=== PATIENT | male | born 1970 | race Caucasian/White ===

== ENCOUNTER 2017-12-26 10:02 | Emergency (ER) | payer MEDICAID, SELFPAY ==
[2017-12-26 10:05] VITALS: BP 146/101; PULSE 74; RESP 20; TEMP 37.1; O2SAT 95
--- NOTE | 2017-12-26 10:31 | DI.RAD_ITS ---
SYMPTOMS/DIAGNOSIS: LEFT-SIDED PLEURITIC CHEST PAIN CHEST X-RAY, PA AND LATERAL: No priors. The heart is normal in size. The lungs are clear. The mediastinal structures and pleura appear intact. IMPRESSION: Normal chest.
--- NOTE | 2017-12-26 10:33 | W.ED.GENAD ---
Discharge Plan Disposition Patient Disposition: HOME Condition: Fair Discharge Details Chief Complaint: Chest/Rib Clinical Impression: Musculoskeletal pain Primary Care Provider: Ga Shields ED Provider: Laine Maehr Home Meds and New Rx's Prescriptions: New diclofenac sodium 75 mg tablet,delayed release (DR/EC) 75 mg PO BID PRN (Reason: pain) Qty: 14 RF: 0 Continue buprenorphine-naloxone [Suboxone] 8-2 mg Film 1 film Sublingual DAILY RF: 0 Discharge Instructions Instructions: Musculoskeletal Pain (ED) Additional Instructions: Encourage hydration. May use Tylenol 1000 mg every 4 times daily as needed. Please take diclofenac as prescribed. You may take your next dosing this evening prior to going to bed. You may continue with topical options such as salonpas or Lidoderm patches to help with discomfort. Ice or heat to affected area. Please follow-up with primary care in the next week, have asked her rn primary care help facilitate follow-up. If you develop shortness of breath, difficulty breathing, fever/chills or other new/worsening symptoms please seek care urgently once again. Try to avoid activities that cause increased pain such as heavy lifting Referrals: Ga Shields MD [Primary Care Provider] - Discharge Data Discharge Date/Time-TO BE ENTERED AT DEPARTURE: 12/26/17 13:00 Medical Decision Making Patient is a 47-year-old male presenting today with chief complaint of left-sided pleuritic chest pain. Reports that symptoms began 1 week ago. Patient denies any cardiac or respiratory chronic conditions. Denies any cough, shortness of breath. Reports that pain primarily only with movement or with deep inspiration. He reports that when sitting still the pain completely subsides. Denies any fevers or chills. States that the discomfort began insidiously 1 week ago. Denies any trauma or known injury leading to initial discomfort. No recent travel. Patient is an active smoker, smokes roughly half pack daily. Denies any central chest discomfort. States that the pain can radiate anteriorly slightly. Denies any hematuria or change in urination. Denies any change in bowel habits. Lungs are clear on exam. Patient does have discomfort elicited with gentle palpation of the left side of the back. Fairly large area of discomfort. As the pain can radiate anteriorly, I did question shingles but the pain is only with movement and no rashes visualized. Pain also does not follow complete dermatome pattern. Considered both pulmonary, cardiac and abdominal sources of his discomfort. This is pleuritic is likely pulmonary source. Will obtain laboratory evaluation as well as chest x-ray Laboratory evaluation without significant of normality. No leukocytosis. D-dimer is within normal limits. Troponin is less than 0.02. Lipase within normal limits. No blood noted on urinalysis. Discussed these findings with the patient. I did review the x-ray myself do not appreciate any acute abnormality. However, I am still waiting radiologist report. With these findings, I discussed this likely muscular skeletal versus pleuritis. I encouraged hydration. Encouraged use of an anti-inflammatory. Will prescribe the patient ibuprofen. Patient reports the Toradol was unsuccessful in alleviating his discomfort. We will augment this with Lidoderm patch X-ray reviewed by radiologist. Advised that there is no acute findings. Discussed findings with the patient. Given his diffuse discomfort on the left side of his back, I did have multiple possible diagnoses. However, patient does not have a rash, d-dimer is within normal limits, troponin is less than 0.02, patient does not exhibit any signs of infection, no hematuria. His symptoms are more consistent with a pleuritic or musculoskeletal source of discomfort as it is worse with inspiration. Does not sound consistent with a kidney stone. Does not sound consistent with cardiac etiology. Given the length of his discomfort, I do not feel that repeat troponin is warranted at this time particularly as I have low suspicion for cardiac etiology at this time. I advised the patient begin an anti-inflammatory regularly as this will likely help with the source of his discomfort. I encouraged gentle stretching and ambulation. We discussed activities that he should avoid that may increase his discomfort. He was given strict return precautions. All of his questions and concerns were addressed and he is in agreement this plan. Patient does not have a primary care physician, I have asked her rn primary care help facilitate follow-up for him for reevaluation HPI General Mode of arrival: ambulatory. Date/Time Provider Initiated Documentation: 12/26/17 10:17. Limitations to Documentation: no limitations. Information obtained by: patient. History of Present Illness 47 year old M presents to the emergency department with the chief complaint of left sided rib pain, described as severe, with intensity rated at 10. Quality is described as stabbing, and is localized to the chest and back. Patient abdomen. Patient started experiencing this week(s) (1) and it has been constant. Immobilization improves symptom(s), Movement worsens symptoms . Patient notes no other symptoms.; denies cough, fever/chills, headaches, loss of appetite, nausea/vomiting, rash and shortness of breath. Patient did receive the following treatments prior to arrival, none Related Data Home Medications Medication Instructions Recorded Confirmed buprenorphine-naloxone [Suboxone] 1 film SUBLINGUAL DAILY 12/26/17 12/26/17 diclofenac sodium 75 mg PO BID PRN #14 tab 12/26/17 Previous Rx's Medication Instructions Recorded diclofenac sodium 75 mg PO BID PRN #14 tab 12/26/17 Allergies Allergy/AdvReac Type Severity Reaction Status Date / Time No Known Allergies Allergy Unverified 12/26/17 10:07 General Stated Complaint: Chest/Rib ALEXA: 3 Review of Systems Constitutional Reports as per HPI, Denies body ache(s), Denies chills, Denies fatigue and Denies fever(s) Cardiovascular Reports as per HPI, Reports chest pain (Chest wall discomfort which sounds to be pleuritic in nature in the posterior left side of the chest wall.), Denies chest pain at rest, Reports chest pain with activity (Pain is exacerbated with rotational movements. This is not worsened by walking straight or exertional movements that do not involve rotational or flexion movements of the course of), Denies claudication, Denies palpitations, Denies dyspnea and Denies dyspnea on exertion Respiratory Reports as per HPI, Denies chest congestion, Denies cough, Denies dyspnea, Denies dyspnea on exertion, Denies stridor and Denies wheezing Gastrointestinal Denies change in bowel habits, Denies diarrhea, Denies nausea and Denies vomiting Musculoskeletal Reports as per HPI and Reports back pain Integumentary/Breasts Denies rash and Reports skin pain Endocrine Denies fatigue and Denies palpitations Allergic/Immunologic Denies wheezing [facility] Social History Smoking/Tobacco Use Status: Current every day Exam Const General: cooperative, healthy appearing, comfortable, no acute distress, well developed and well groomed Nutritional Appearance: average body habitus and well nourished Orientation: alert and awake HENMT Head: normal to inspection Mouth: oral mucosae normal and moist mucous membranes Eyes General: appearance normal, both eyes and all related structures Neck Neck: normal visual inspection, no lymphadenopathy, no meningeal signs and trachea midline Carotids: normal carotid upstroke and no bruits Chest Chest: normal inspection of the chest, normal palpation of entire chest wall, no crepitus and no localized rib tenderness (Patient is fairly diffuse discomfort along the left lateral aspect of the chest wall extending posteriorly. This is elicited with palpation. This is not able to be pinpointed to any specific rib, seems fairly diffuse) Resp Effort & Inspection: normal respiratory effort, able to speak in complete sentences and no respiratory distress Auscultation: clear to auscultation bilaterally, no rales, no rhonchi and no wheezes Cardio Rate: regular rate Rhythm: regular rhythm Heart Sounds: S1 normal and S2 normal GI Inspection: normal to inspection, no abdominal wall ecchymosis and non-distended Palpation: soft, no hepatosplenomegaly, no aortic enlargement, not firm, no guarding, not rigid and nontender Auscultation: normal bowel sounds Back/Spine/Pelvis Back: CVA tenderness (Left side, extending down from the lateral chest wall discomfort), No erythema, No warmth, No ecchymosis and back tenderness (diffuse back discomfort, please see image below) Thoracic/Lumbar Spine: thoracic and lumbar spine normal to inspection (no midline tenderness, no step off palpable) Sacroiliac joints: not on the right and not on the left Back/spine/pelvis image: 1. area of discomfort Skin General skin exam: no rashes or lesions noted Neuro General: alert and awake Cognition: normal cognition Speech: speech normal Gait: normal gait Motor: muscle tone normal throughout and strength 5/5 throughout (equal bilaterally in lower extremities) Sensory Exam: no sensory deficits noted (no saddle paresthesias) Extrem General: normal to inspection, no pedal edema, no calf tenderness and normal gait Psych Appearance: grossly normal and well kempt Mental Status: mental status grossly normal Speech and Movement: speech and movement normal Mood: congruent mood Course Vital Signs Temperature 37.1 C 12/26/17 10:05 Pulse 74 12/26/17 10:05 Respiratory Rate 20 12/26/17 10:05 Blood Pressure 146/101 H 12/26/17 10:05 Pulse Oximetry 95 12/26/17 10:05 Temperature 37.1 C 12/26/17 10:05 Temperature Source Temporal Artery Scan 12/26/17 10:05 Pulse 74 12/26/17 10:05 Respiratory Rate 20 12/26/17 10:05 Blood Pressure 146/101 H 12/26/17 10:05 Blood Pressure Position Sitting 12/26/17 10:05 Pulse Oximetry 95 12/26/17 10:05 Oxygen Delivery Method Room Air 12/26/17 10:05 Oxygen Flow Rate 0 12/26/17 10:05 Pain Level 10 12/26/17 10:05
--- NOTE | 2017-12-26 10:37 | ED.GENADUL_ITS ---
Discharge Plan Disposition Patient Disposition: HOME Condition: Fair Discharge Details Chief Complaint: Chest/Rib Clinical Impression: Musculoskeletal pain Primary Care Provider: Ga Shields ED Provider: Laine Maher Home Meds and New Rx's Prescriptions: New diclofenac sodium 75 mg tablet,delayed release (DR/EC) 75 mg PO BID PRN (Reason: pain) Qty: 14 RF: 0 Continue buprenorphine-naloxone [Suboxone] 8-2 mg Film 1 film Sublingual DAILY RF: 0 Discharge Instructions Instructions: Musculoskeletal Pain (ED) Additional Instructions: Encourage hydration. May use Tylenol 1000 mg every 4 times daily as needed. Please take diclofenac as prescribed. You may take your next dosing this evening prior to going to bed. You may continue with topical options such as salonpas or Lidoderm patches to help with discomfort. Ice or heat to affected area. Please follow-up with primary care in the next week, have asked her care manager help facilitate follow-up. If you develop shortness of breath, difficulty breathing, fever/chills or other new/worsening symptoms please seek care urgently once again. Try to avoid activities that cause increased pain such as heavy lifting Referrals: Ga Shields MD [Primary Care Provider] - Discharge Data Discharge Date/Time-TO BE ENTERED AT DEPARTURE: 12/26/17 13:00 Medical Decision Making Patient is a 47-year-old male presenting today with chief complaint of left- sided pleuritic chest pain. Reports that symptoms began 1 week ago. Patient denies any cardiac or respiratory chronic conditions. Denies any cough, shortness of breath. Reports that pain primarily only with movement or with deep inspiration. He reports that when sitting still the pain completely subsides. Denies any fevers or chills. States that the discomfort began insidiously 1 week ago. Denies any trauma or known injury leading to initial discomfort. No recent travel. Patient is an active smoker, smokes roughly half pack daily. Denies any central chest discomfort. States that the pain can radiate anteriorly slightly. Denies any hematuria or change in urination. Denies any change in bowel habits. Lungs are clear on exam. Patient does have discomfort elicited with gentle palpation of the left side of the back. Fairly large area of discomfort. As the pain can radiate anteriorly, I did question shingles but the pain is only with movement and no rashes visualized. Pain also does not follow complete dermatome pattern. Considered both pulmonary, cardiac and abdominal sources of his discomfort. This is pleuritic is likely pulmonary source. Will obtain laboratory evaluation as well as chest x-ray Laboratory evaluation without significant of normality. No leukocytosis. D- dimer is within normal limits. Troponin is less than 0.02. Lipase within normal limits. No blood noted on urinalysis. Discussed these findings with the patient. I did review the x-ray myself do not appreciate any acute abnormality. However, I am still waiting radiologist report. With these findings, I discussed this likely muscular skeletal versus pleuritis. I encouraged hydration. Encouraged use of an anti-inflammatory. Will prescribe the patient ibuprofen. Patient reports the Toradol was unsuccessful in alleviating his discomfort. We will augment this with Lidoderm patch X-ray reviewed by radiologist. Advised that there is no acute findings. Discussed findings with the patient. Given his diffuse discomfort on the left side of his back, I did have multiple possible diagnoses. However, patient does not have a rash, d-dimer is within normal limits, troponin is less than 0.02, patient does not exhibit any signs of infection, no hematuria. His symptoms are more consistent with a pleuritic or musculoskeletal source of discomfort as it is worse with inspiration. Does not sound consistent with a kidney stone. Does not sound consistent with cardiac etiology. Given the length of his discomfort, I do not feel that repeat troponin is warranted at this time particularly as I have low suspicion for cardiac etiology at this time. I advised the patient begin an anti-inflammatory regularly as this will likely help with the source of his discomfort. I encouraged gentle stretching and ambulation. We discussed activities that he should avoid that may increase his discomfort. He was given strict return precautions. All of his questions and concerns were addressed and he is in agreement this plan. Patient does not have a primary care physician, I have asked her care manager help facilitate follow-up for him for reevaluation HPI General Mode of arrival: ambulatory . Date/Time Provider Initiated Documentation: 12/26/17 10:17 . Limitations to Documentation: no limitations . Information obtained by: patient . History of Present Illness 47 year old M presents to the emergency department with the chief complaint of left sided rib pain, described as severe, with intensity rated at 10. Quality is described as stabbing, and is localized to the chest and back. Patient abdomen. Patient started experiencing this week(s) (1) and it has been constant. Immobilization improves symptom(s), Movement worsens symptoms . Patient notes no other symptoms.; denies cough, fever/chills, headaches, loss of appetite, nausea/vomiting, rash and shortness of breath. Patient did receive the following treatments prior to arrival, none Related Data Home Medications Medication Instructions Recorded Confirmed buprenorphine-naloxone [Suboxone] 1 film SUBLINGUAL DAILY 12/26/17 12/26/17 diclofenac sodium 75 mg PO BID PRN #14 tab 12/26/17 Previous Rx's Medication Instructions Recorded diclofenac sodium 75 mg PO BID PRN #14 tab 12/26/17 Allergies Allergy/AdvReac Type Severity Reaction Status Date / Time No Known Allergies Allergy Unverified 12/26/17 10:07 General Stated Complaint: Chest/Rib ALEXA: 3 Review of Systems Constitutional Reports as per HPI, Denies body ache(s), Denies chills, Denies fatigue and Denies fever(s) Cardiovascular Reports as per HPI, Reports chest pain (Chest wall discomfort which sounds to be pleuritic in nature in the posterior left side of the chest wall.), Denies chest pain at rest, Reports chest pain with activity (Pain is exacerbated with rotational movements. This is not worsened by walking straight or exertional movements that do not involve rotational or flexion movements of the course of) , Denies claudication, Denies palpitations, Denies dyspnea and Denies dyspnea on exertion Respiratory Reports as per HPI, Denies chest congestion, Denies cough, Denies dyspnea, Denies dyspnea on exertion, Denies stridor and Denies wheezing Gastrointestinal Denies change in bowel habits, Denies diarrhea, Denies nausea and Denies vomiting Musculoskeletal Reports as per HPI and Reports back pain Integumentary/Breasts Denies rash and Reports skin pain Endocrine Denies fatigue and Denies palpitations Allergic/Immunologic Denies wheezing [facility] [place] Social History Smoking/Tobacco Use Status: Current every day Exam Const General: cooperative, healthy appearing, comfortable, no acute distress, well developed and well groomed Nutritional Appearance: average body habitus and well nourished Orientation: alert and awake HENMT Head: normal to inspection Mouth: oral mucosae normal and moist mucous membranes Eyes General: appearance normal, both eyes and all related structures Neck Neck: normal visual inspection, no lymphadenopathy, no meningeal signs and trachea midline Carotids: normal carotid upstroke and no bruits Chest Chest: normal inspection of the chest, normal palpation of entire chest wall, no crepitus and no localized rib tenderness (Patient is fairly diffuse discomfort along the left lateral aspect of the chest wall extending posteriorly. This is elicited with palpation. This is not able to be pinpointed to any specific rib, seems fairly diffuse) Resp Effort & Inspection: normal respiratory effort, able to speak in complete sentences and no respiratory distress Auscultation: clear to auscultation bilaterally, no rales, no rhonchi and no wheezes Cardio Rate: regular rate Rhythm: regular rhythm Heart Sounds: S1 normal and S2 normal GI Inspection: normal to inspection, no abdominal wall ecchymosis and non-distended Palpation: soft, no hepatosplenomegaly, no aortic enlargement, not firm, no guarding, not rigid and nontender Auscultation: normal bowel sounds Back/Spine/Pelvis Back: CVA tenderness (Left side, extending down from the lateral chest wall discomfort), No erythema, No warmth, No ecchymosis and back tenderness (diffuse back discomfort, please see image below) Thoracic/Lumbar Spine: thoracic and lumbar spine normal to inspection (no midline tenderness, no step off palpable) Sacroiliac joints: not on the right and not on the left Back/spine/pelvis image: 2 1. area of discomfort Skin General skin exam: no rashes or lesions noted Neuro General: alert and awake Cognition: normal cognition Speech: speech normal Gait: normal gait Motor: muscle tone normal throughout and strength 5/5 throughout (equal bilaterally in lower extremities) Sensory Exam: no sensory deficits noted (no saddle paresthesias) Extrem General: normal to inspection, no pedal edema, no calf tenderness and normal gait Psych Appearance: grossly normal and well kempt Mental Status: mental status grossly normal Speech and Movement: speech and movement normal Mood: congruent mood Course Vital Signs Temperature 37.1 C 12/26/17 10:05 Pulse 74 12/26/17 10:05 Respiratory Rate 20 12/26/17 10:05 Blood Pressure 146/101 H 12/26/17 10:05 Pulse Oximetry 95 12/26/17 10:05 Temperature 37.1 C 12/26/17 10:05 Temperature Source Temporal Artery Scan 12/26/17 10:05 Pulse 74 12/26/17 10:05 Respiratory Rate 20 12/26/17 10:05 Blood Pressure 146/101 H 12/26/17 10:05 Blood Pressure Position Sitting 12/26/17 10:05 Pulse Oximetry 95 12/26/17 10:05 Oxygen Delivery Method Room Air 12/26/17 10:05 Oxygen Flow Rate 0 12/26/17 10:05 Pain Level 10 12/26/17 10:05
[2017-12-26] MEDS: Normal Saline 1,000 ML 1000 ML IV (10:44)
[2017-12-26] MEDS: Normal Saline Flush 10 ML SYR IVP (10:44)
[2017-12-26] MEDS: Ketorolac 30 MG/ML VIAL IVP (10:48)
[2017-12-26 10:53] LABS: Abs Immature Grans 0.02 k/cumm (0.0-0.09); Absolute Basophil Count 0.05 k/cumm (0.0-0.2); Absolute Eosinophil Count 0.33 k/cumm (0.0-0.7); Absolute Lymphocyte Count 2.51 k/cumm (1.2-3.4); Absolute Monocyte Count 0.69 k/cumm (0.11-0.7); Absolute Neutrophil Count 5.61 k/cumm (1.2-6.7); Basophils % 0.5; Eosinophils % 3.6; HCT 47.5 % (40.0-50.0); HGB 16.3 g/dL (13.5-17.5); Immature Grans % 0.2; Lymphocytes % 27.3; Mean Corp. HGB Concentration 34.3 g/dL (32.0-36.0); Mean Corpuscular Hemoglobin 30.4 pg (27.0-33.0); Mean Corpuscular Volume 88.6 fL (80-95); Mean Platelet Volume 9.5 fL (8.0-11.0); Monocytes % 7.5; Neutrophils % 60.9; Platelet Count 256 x1000/uL (130-400); RBC 5.36 m/cumm (4.50-6.00); RBC Distribution Width 13.5 % (11.8-14.1); White Blood Cell Count 9.21 k/cumm (4.4-10.8)
[2017-12-26 10:58] LABS: Bilirubin Negative (Negative); Blood Negative (Negative); Clarity Clear; Glucose Negative (Negative); Ketones Negative (Negative); Leukocyte Esterase Negative (Negative); Nitrite Negative (Negative); Specific Gravity >= 1.030 (1.005-1.025); Urobilinogen 0.2 EU/dL (Up TO 0.2); pH 5.5 (5-8)
[2017-12-26 11:08] LABS: ALT 43 U/L (12-78); AST 18 U/L (15-37); Albumin 3.8 g/dL (3.4-5.0); Alkaline Phosphatase 85 U/L (46-116); Anion Gap 8.2 mmol/L (3-11); BUN 19 mg/dL (7-18); Bilirubin, Total 0.5 mg/dL (0.2-1.0); CO2 25.8 mmol/L (21.0-32.0); CREATININE 0.76 mg/dL (0.70-1.30); Calcium 9.1 mg/dL (8.5-10.1); Chloride 103 mmol/L (98-107); Glucose 102 mg/dL (70-100); Lipase 151 U/L (73-393); Potassium 4.2 mmol/L (3.5-5.1); Sodium 137 mmol/L (136-145); Total Protein 7.3 g/dL (6.4-8.2); Troponin I < 0.02 ng/mL (0.00-0.06)
[2017-12-26 11:23] LABS: D-Dimer 263 ng/mlFEU (<500)
[2017-12-26 12:15] VITALS: BP 143/95; PULSE 70; RESP 17; TEMP 36.6; O2SAT 95
[2017-12-26] MEDS: Lidocaine 5% Patch 1 PATCH TP (12:16)
--- NOTE | 2017-12-26 12:44 | DI.VRAD_ITS ---
EXAM: XR Chest, 2 Views EXAM DATE/TIME: 12/26/2017 10:33 AM CLINICAL HISTORY: 47 years old, male; Pain; Other: Lt. Sided pleuritic cp TECHNIQUE: XR of the chest, 2 views. COMPARISON: No relevant prior studies available. FINDINGS: Lungs: Unremarkable. No consolidation. Pleural space: Unremarkable. No pleural effusion. No pneumothorax. Heart/Mediastinum: Unremarkable. No cardiomegaly. Bones/joints: Unremarkable for patient's age. IMPRESSION: No acute findings. Dictated and Authenticated by: Tamia Berg MD. Ordering:SIDNEY JOYNER MD
--- NOTE | 2017-12-28 09:18 | PDOC.ERCMPRO ---
Care Management Progress Note 12/28-Laine SMITH requested assistance with a PCP f/u in one week for left sided back pain. Patient needs to establish a PCP. Dr. Ferrara contact lens technician. Referral faxed to [facility] this morning.
--- NOTE | 2017-12-28 09:19 | CMPROGNOTE_ITS ---
Care Management Progress Note 12/28-Laine SMITH requested assistance with a PCP f/u in one week for left sided back pain. Patient needs to establish a PCP. Dr. Ferrara institutional custodian. Referral faxed to [facility] this morning.
== END 2017-12-26 13:00 | disposition home or self-care (01) ==
PROVIDERS: Emergency Provider Physician Assistant; PCP Family Medicine
DX: R07.89 Other chest pain (principal); F17.210 Nicotine dependence, cigarettes, uncomplicated
CPT/HCPCS: 36415; 80053; 83690; 96361; 96374; 99284; 71046; 81003; 84484; 85025; 85379; J1885